=== PATIENT | female | born 1965 | race Caucasian/White ===

== ENCOUNTER → 2017-07-14 | Outpatient (CLI) | payer OTHER ==
[~2017-07-14] MED LIST: ANTIVERT 25MG25 MG PO; CELEXA 20MG20 MG/TAB PO; DULERA1 ARO; NORCO 325 MG-51 TAB PO; PHENERGAN 25 TA25 MG PO; ZYRTEC 10MG10 MG PO
== END ==
LOC: MC.RAD 07:00
DX: Z12.31 Encounter for screening mammogram for malignant neoplasm of breast (principal)

== ENCOUNTER → 2018-05-19 | Outpatient (CLI) | payer OTHER | LOC: COL.RAD 07:14 | DX: S76.211A Strain of adductor muscle, fascia and tendon of right thigh, initial encounter (principal) | CPT/HCPCS: A9585 ==

== ENCOUNTER → 2018-05-26 | Outpatient (CLI) | payer OTHER | LOC: MHCPAIN 08:40 | DX: G89.29 Other chronic pain (principal); M47.817 Spondylosis without myelopathy or radiculopathy, lumbosacral region; M54.16 Radiculopathy, lumbar region | CPT/HCPCS: G0463 ==

== ENCOUNTER 2018-07-28 09:30 | Outpatient (RCR) | payer OTHER | END 2018-09-01 | disposition home or self-care (01) | LOC: WSC | DX: M47.26 Other spondylosis with radiculopathy, lumbar region (principal); M47.818 Spondylosis without myelopathy or radiculopathy, sacral and sacrococcygeal region; G89.29 Other chronic pain ==

== ENCOUNTER → 2018-07-30 | Outpatient (CLI) | payer OTHER | LOC: MC.RAD 06:52 | DX: Z12.31 Encounter for screening mammogram for malignant neoplasm of breast (principal) ==

== ENCOUNTER → 2018-08-24 | Outpatient (CLI) | payer OTHER | LOC: MHCPAIN 07:53 | DX: G89.29 Other chronic pain (principal); M47.817 Spondylosis without myelopathy or radiculopathy, lumbosacral region; M54.16 Radiculopathy, lumbar region; M53.3 Sacrococcygeal disorders, not elsewhere classified | CPT/HCPCS: G0463 ==

== ENCOUNTER 2018-12-31 13:30 | Outpatient (RCR) | payer OTHER | END 2019-01-31 | disposition home or self-care (01) | LOC: WSC | DX: M54.16 Radiculopathy, lumbar region (principal); M47.817 Spondylosis without myelopathy or radiculopathy, lumbosacral region; G89.29 Other chronic pain; M25.659 Stiffness of unspecified hip, not elsewhere classified ==

== ENCOUNTER → 2020-06-28 | Outpatient (CLI) | payer OTHER | LOC: MC.RAD 07:09 | DX: Z12.31 Encounter for screening mammogram for malignant neoplasm of breast (principal) ==

== ENCOUNTER → 2023-10-20 | Outpatient (CLI) | payer OTHER | LOC: MC.RAD 09:21 | DX: Z12.31 Encounter for screening mammogram for malignant neoplasm of breast (principal) ==